=== PATIENT | female | born 1985 | race Caucasian/White ===

== ENCOUNTER → 2021-02-07 | Outpatient (CLI) | payer BC | LOC: MC.RAD 07:55 | DX: Z12.31 Encounter for screening mammogram for malignant neoplasm of breast (principal) ==

== ENCOUNTER 2021-10-04 13:57 | Emergency (ER) | payer BC ==
[~2021-10-04] VITALS: Ht 162.6 cm; Wt 79.5 kg
[2021-10-04 13:58] VITALS: TEMP 98.6
[2021-10-04] MEDS ORDERED: ZOFRAN ODT4 MG PO (14:52)
[2021-10-04 15:21] VITALS: BP 119/80; PULSE 90
== END 2021-10-04 15:21 | disposition home or self-care (01) ==
LOC: COL.ER 13:57
DX: S06.0X0A Concussion without loss of consciousness, initial encounter (principal); S50.812A Abrasion of left forearm, initial encounter; Z28.310 Unvaccinated for COVID-19; V00.831A Fall from motorized mobility scooter, initial encounter; Y92.410 Unspecified street and highway as the place of occurrence of the external cause